=== PATIENT | male | born 1995 | race Caucasian/White ===

== ENCOUNTER 2023-03-24 12:31 | Inpatient (IN) | payer OTHER ==
[2023-03-24] MEDS ORDERED: fentaNYL 50 mcg/mL 1 mL Vial ONE (12:47)
[2023-03-24 13:08] LABS: #Basophils 0.1 thou/uL (0.0-0.2); #Monocytes 1.3 thou/uL (0.11-0.59); %Basophils 0.4 % (0.0-1.0); %Eosinophils 0.1 % (0.0-10.0); %Lymphocytes 6.4 % (21.0-51.0); %Monocytes 5.7 % (0.0-10.0); %Neutrophils 86.9 % (42.0-75.0); Hematocrit 40.7 % (42.0-52.0); Hemoglobin 14.2 g/dL (14.0-18.0); Mean Corpuscular HGB CONC 34.9 g/dL (32.0-36.0); Mean Corpuscular Hemoglobin 30.5 pg (27.0-31.0); Mean Corpuscular Volume 87.5 fl (78.0-98.0); Mean Platelet Volume 9.8 fL (7.4-10.4); Platelet Count 269 10x3/uL (130-400); RBC Distribution Width 11.9 % (11.5-14.5); Red Blood Cell (RBC) Count 4.65 mill/uL (4.70-6.10)
[2023-03-24 13:26] LABS: INR-International Normal Ratio 1.1; PTT 29.4 sec (22.9-36.1); Prothrombin Time 14.7 sec (12.0-14.7)
[2023-03-24 13:35] LABS: ALT (SGPT) 18 U/L (8-55); AST (SGOT) 23 U/L (5-34); Albumin 4.4 g/dL (3.5-5.0); Alkaline Phosphatase 52 U/L (40-110); Anion Gap 14 mmol/L (10-20); BUN (Urea Nitrogen) 12 mg/dL (8.9-20.6); Bilirubin, Total 0.9 mg/dL (0.2-1.2); Calc. Creatinine Clearance 0 mL/min (70-130); Calcium 8.5 mg/dL (7.8-10.44); Carbon Dioxide 22 mmol/L (22-29); Chloride 105 mmol/L (98-107); Estimated GFR 88; Globulin 2.3 g/dL (2.4-3.5); Glucose 94 mg/dL (70-105); Lipase 20 U/L (8-78); Potassium 3.6 mmol/L (3.5-5.1); Protein, Total 6.7 g/dL (6.0-8.3); Sodium 137 mmol/L (136-145)
[2023-03-24] MEDS ORDERED: Morphine 4 MG/ML VIAL ONE (13:53)
[2023-03-24 15:50] VITALS: BMI 22.4
[2023-03-24] MEDS ORDERED: FLU VACC QS2023-24(6MOS UP)/PF 60 MCG/0.5 ML SYRINGE IM ONE (16:00)
[2023-03-24] MEDS ORDERED: TETANUS, DIPHTHERIA TOX,ADULT (TDVAX) 0.5 ML VIAL IM ONE ×2 (16:07→16:45)
[2023-03-24] MEDS ORDERED: Ipratropium/Albuterol 3 ML NEB NEB PRN (16:07)
[2023-03-24] MEDS ORDERED: Ondansetron ODT 4 MG TAB PO PRN (16:07)
[2023-03-24] MEDS ORDERED: Acetaminophen/Codeine 30-300mg Tablet ONE (16:44)
[2023-03-24] MEDS: Sodium Chloride 0.9% 1,000 ML IV SCH (16:54)
[2023-03-24] MEDS: Acetaminophen/Codeine 30-300mg Tablet PO SCH ×2 (16:54→23:36)
[2023-03-24] MEDS ORDERED: Acetaminophen 325 MG TAB ONE (16:56)
[2023-03-24] MEDS: Acetaminophen 325 MG TAB PO SCH ×2 (16:57→23:35)
[2023-03-24] MEDS ORDERED: Morphine 2 MG/ML VIAL ONE (20:09)
[2023-03-24] MEDS ORDERED: levETIRAcetam 500 MG TAB ONE (20:09)
[2023-03-24] MEDS ORDERED: Famotidine 20 MG TAB ONE (20:09)
[2023-03-24] MEDS: levETIRAcetam 500 MG TAB PO SCH (20:15)
[2023-03-24] MEDS: Morphine 2 MG/ML VIAL SLOW IVP PRN ×2 (20:15→23:35)
[2023-03-24] MEDS: Famotidine 20 MG TAB PO SCH (20:15)
[2023-03-25] MEDS: Sodium Chloride 0.9% 1,000 ML IV SCH ×3 (00:40→16:56)
[2023-03-25] MEDS: Acetaminophen 325 MG TAB PO SCH ×5 (05:33→23:06)
[2023-03-25] MEDS: Acetaminophen/Codeine 30-300mg Tablet PO SCH ×5 (05:33→23:06)
[2023-03-25] MEDS: Morphine 2 MG/ML VIAL SLOW IVP PRN ×4 (05:33→23:07)
[2023-03-25] MEDS ORDERED: Polyethylene Glycol 3350 17 GM Packet PO PRN (06:58)
[2023-03-25] MEDS ORDERED: Senokot 8.6 MG TAB PO PRN (06:58)
[2023-03-25] MEDS: levETIRAcetam 500 MG TAB PO SCH ×2 (09:04→19:43)
[2023-03-25] MEDS: Famotidine 20 MG TAB PO SCH ×2 (09:04→19:43)
[2023-03-25] MEDS ORDERED: Bupivacaine 0.25% HCL 30 ML VIAL ONE (11:47)
[2023-03-25] MEDS ORDERED: Bupivacaine PF 0.5% 30 ML VIAL ONE (11:47)
[2023-03-25] MEDS ORDERED: CEFAZOLIN 2 GM VIAL ONE (11:56)
[2023-03-25] MEDS ORDERED: Sodium Chloride 0.9% 100 ML ONE (11:56)
[2023-03-25] MEDS ORDERED: Midazolam HCl 2 mg/2 ml Vial ONE (11:57)
[2023-03-25] MEDS ORDERED: fentaNYL PF 100 MCG/2 ML SYRINGE ONE ×4 (11:57→14:09)
[2023-03-25] MEDS ORDERED: Lidocaine 1% PF 5 ML VIAL ONE ×2 (11:57→12:08)
[2023-03-25] MEDS ORDERED: PROPOFOL 20 ML ONE (11:57)
[2023-03-25] MEDS ORDERED: Ondansetron PF 4 MG/2 ML Vial ONE (11:57)
[2023-03-25] MEDS ORDERED: PROPOFOL 200 MG/20 ML VIAL ONE (12:08)
[2023-03-25] MEDS ORDERED: Tranexamic Acid 1,000 MG/10 ML VIAL ONE (14:07)
[2023-03-25] MEDS ORDERED: Ketorolac Tromethamine 30 MG/ML VIAL ONE (14:07)
[2023-03-25] MEDS ORDERED: Promethazine HCl 25 MG/ML VIAL IM PRN (14:08)
[2023-03-25] MEDS ORDERED: Ondansetron HCl/PF 4 MG/2 ML Vial IVP PRN (14:08)
[2023-03-25] MEDS ORDERED: HYDROmorphone 2 MG/ML VIAL SLOW IVP PRN (14:08)
[2023-03-25] MEDS ORDERED: Meperidine HCl/PF 25 MG/ML VIAL SLOW IVP PRN (14:08)
[2023-03-25] MEDS ORDERED: HYDROmorphone 0.5 MG/0.5 ML SYRINGE ONE (14:37)
[2023-03-25 18:11] LABS: INR-International Normal Ratio 1.3; PTT 26.5 sec (22.9-36.1); Prothrombin Time 16.9 sec (12.0-14.7)
[2023-03-25 18:12] LABS: D-Dimer Test 2.49 *mcg/mL (0.27-0.43)
[2023-03-25 18:21] LABS: #Basophils 0.1 thou/uL (0.0-0.2); #Monocytes 1.8 thou/uL (0.11-0.59); #Neutrophils 18.7 thou/uL (1.40-6.50); %Basophils 0.3 % (0.0-1.0); %Lymphocytes 4.1 % (21.0-51.0); %Monocytes 8.3 % (0.0-10.0); %Neutrophils 86.7 % (42.0-75.0); Mean Corpuscular HGB CONC 33.3 g/dL (32.0-36.0); Mean Corpuscular Volume 93.1 fl (78.0-98.0); Mean Platelet Volume 10.9 fL (7.4-10.4); Platelet Count 196 10x3/uL (130-400); Red Blood Cell (RBC) Count 3.03 mill/uL (4.70-6.10); White Blood Cell (WBC) Count 21.6 10x3/uL (4.8-10.8)
[2023-03-25 18:23] LABS: Hematocrit 28.2 % (42.0-52.0); Hemoglobin 9.4 g/dL (14.0-18.0)
[2023-03-25 18:25] LABS: Troponin I 0.021 ng/mL (< 0.028)
[2023-03-25 18:26] LABS: ALT (SGPT) 20 U/L (8-55); AST (SGOT) 62 U/L (5-34); Albumin 3.3 g/dL (3.5-5.0); Alkaline Phosphatase 42 U/L (40-110); Anion Gap 14 mmol/L (10-20); BUN (Urea Nitrogen) 10 mg/dL (8.9-20.6); Bilirubin, Total 0.9 mg/dL (0.2-1.2); Calc. Creatinine Clearance 129 mL/min (70-130); Calcium 7.4 mg/dL (7.8-10.44); Carbon Dioxide 17 mmol/L (22-29); Chloride 109 mmol/L (98-107); Estimated GFR 115; Globulin 1.7 g/dL (2.4-3.5); Glucose 100 mg/dL (70-105); Potassium 4.4 mmol/L (3.5-5.1); Sodium 136 mmol/L (136-145)
[2023-03-25] MEDS ORDERED: Electrolyte Replacement Protocol 1 EACH FS SCH (19:00)
[2023-03-25] MEDS ORDERED: Electrolyte Replacement Protocol FS PRN (19:00)
[2023-03-26] MEDS: Sodium Chloride 0.9% 1,000 ML IV SCH ×3 (01:50→22:36)
[2023-03-26] MEDS: Morphine 2 MG/ML VIAL SLOW IVP PRN ×5 (03:59→23:13)
[2023-03-26] MEDS: Acetaminophen/Codeine 30-300mg Tablet PO SCH ×5 (05:09→23:12)
[2023-03-26 05:10] LABS: #Basophils 0.1 thou/uL (0.0-0.2); #Eosinphils 0.1 thou/uL (0.0-0.7); #Monocytes 1.8 thou/uL (0.11-0.59); #Neutrophils 5.9 thou/uL (1.40-6.50); %Basophils 0.6 % (0.0-1.0); %Eosinophils 0.9 % (0.0-10.0); %Lymphocytes 24.4 % (21.0-51.0); %Monocytes 17.5 % (0.0-10.0); %Neutrophils 56.3 % (42.0-75.0); Hematocrit 21.9 % (42.0-52.0); Hemoglobin 7.6 g/dL (14.0-18.0); Mean Corpuscular HGB CONC 34.7 g/dL (32.0-36.0); Mean Corpuscular Hemoglobin 30.3 pg (27.0-31.0); Mean Platelet Volume 9.6 fL (7.4-10.4); Platelet Count 181 10x3/uL (130-400); Red Blood Cell (RBC) Count 2.51 mill/uL (4.70-6.10)
[2023-03-26] MEDS: Acetaminophen 325 MG TAB PO SCH ×4 (05:10→23:13)
[2023-03-26 05:19] LABS: Mean Corpuscular Volume 87.3 fl (78.0-98.0); White Blood Cell (WBC) Count 10.5 10x3/uL (4.8-10.8)
[2023-03-26 06:17] LABS: ALT (SGPT) 19 U/L (8-55); AST (SGOT) 71 U/L (5-34); Albumin 2.9 g/dL (3.5-5.0); Alkaline Phosphatase 38 U/L (40-110); Anion Gap 9 mmol/L (10-20); BUN (Urea Nitrogen) 9 mg/dL (8.9-20.6); Bilirubin, Total 0.4 mg/dL (0.2-1.2); Calc. Creatinine Clearance 122 mL/min (70-130); Calcium 7.4 mg/dL (7.8-10.44); Carbon Dioxide 23 mmol/L (22-29); Chloride 106 mmol/L (98-107); Estimated GFR 108; Globulin 1.7 g/dL (2.4-3.5); Glucose 135 mg/dL (70-105); Protein, Total 4.6 g/dL (6.0-8.3); Sodium 134 mmol/L (136-145)
[2023-03-26] MEDS: levETIRAcetam 500 MG TAB PO SCH ×2 (09:16→20:00)
[2023-03-26 10:11] LABS: INR-International Normal Ratio 1.2; PTT 31.8 sec (22.9-36.1); Prothrombin Time 16.1 sec (12.0-14.7)
[2023-03-26] MEDS: Famotidine 20 MG TAB PO SCH ×2 (10:21→20:01)
[2023-03-26] MEDS: Cyclobenzaprine 10 MG TAB PO PRN ×2 (12:12→20:00)
[2023-03-26] MEDS: traMADol HCl 50 MG TAB PO PRN (18:22)
[2023-03-26] MEDS: Ferrous Sulfate 325 MG TAB PO SCH (18:23)
[2023-03-27] MEDS: Sodium Chloride 0.9% 1,000 ML IV SCH (02:01)
[2023-03-27] MEDS: Morphine 2 MG/ML VIAL SLOW IVP PRN ×3 (05:05→15:22)
[2023-03-27] MEDS: Acetaminophen 325 MG TAB PO SCH ×4 (05:06→23:12)
[2023-03-27] MEDS: Acetaminophen/Codeine 30-300mg Tablet PO SCH ×4 (05:06→23:12)
[2023-03-27] MEDS: Cyclobenzaprine 10 MG TAB PO PRN ×2 (05:09→12:44)
[2023-03-27 05:23] LABS: Hematocrit 19.9 % (42.0-52.0); Hemoglobin 6.8 g/dL (14.0-18.0); Platelet Count 151 10x3/uL (130-400)
[2023-03-27] MEDS: traMADol HCl 50 MG TAB PO PRN (05:40)
[2023-03-27] MEDS: Ferrous Sulfate 325 MG TAB PO SCH ×2 (09:03→18:01)
[2023-03-27] MEDS: Famotidine 20 MG TAB PO SCH ×2 (09:03→20:19)
[2023-03-27] MEDS: levETIRAcetam 500 MG TAB PO SCH ×2 (09:03→20:19)
[2023-03-27] MEDS: Ascorbic Acid 500 mg Chewable Tablet PO SCH (09:03)
[2023-03-27] MEDS: Gabapentin 300 MG CAP PO SCH ×2 (15:22→20:18)
[2023-03-27] MEDS ORDERED: Ketorolac Tromethamine 30 MG/ML VIAL IVP SCH (18:00)
[2023-03-27 18:22] LABS: #Eosinphils 0.1 thou/uL (0.0-0.7); #Monocytes 1.1 thou/uL (0.11-0.59); #Neutrophils 6.8 thou/uL (1.40-6.50); %Basophils 0.4 % (0.0-1.0); %Eosinophils 1.4 % (0.0-10.0); %Lymphocytes 18.3 % (21.0-51.0); %Monocytes 11.4 % (0.0-10.0); %Neutrophils 68.2 % (42.0-75.0); Hematocrit 22.1 % (42.0-52.0); Hemoglobin 7.7 g/dL (14.0-18.0); Mean Corpuscular HGB CONC 34.8 g/dL (32.0-36.0); Mean Corpuscular Hemoglobin 31.4 pg (27.0-31.0); Mean Corpuscular Volume 90.2 fl (78.0-98.0); Mean Platelet Volume 9.9 fL (7.4-10.4); Platelet Count 151 10x3/uL (130-400); RBC Distribution Width 12.7 % (11.5-14.5); Red Blood Cell (RBC) Count 2.45 mill/uL (4.70-6.10)
[2023-03-28] MEDS: Cyclobenzaprine 10 MG TAB PO PRN ×3 (04:42→23:27)
[2023-03-28 05:07] LABS: #Basophils 0.1 thou/uL (0.0-0.2); #Eosinphils 0.2 thou/uL (0.0-0.7); #Neutrophils 6.6 thou/uL (1.40-6.50); %Basophils 0.6 % (0.0-1.0); %Eosinophils 2.2 % (0.0-10.0); %Lymphocytes 16.3 % (21.0-51.0); %Monocytes 10.6 % (0.0-10.0); %Neutrophils 69.9 % (42.0-75.0); Mean Corpuscular HGB CONC 34.6 g/dL (32.0-36.0); Mean Corpuscular Hemoglobin 30.9 pg (27.0-31.0); Mean Corpuscular Volume 89.3 fl (78.0-98.0); Mean Platelet Volume 9.9 fL (7.4-10.4); Platelet Count 173 10x3/uL (130-400); RBC Distribution Width 12.8 % (11.5-14.5); Red Blood Cell (RBC) Count 2.91 mill/uL (4.70-6.10); White Blood Cell (WBC) Count 9.4 10x3/uL (4.8-10.8)
[2023-03-28] MEDS: Acetaminophen/Codeine 30-300mg Tablet PO SCH ×4 (05:13→23:27)
[2023-03-28] MEDS: Ascorbic Acid 500 mg Chewable Tablet PO SCH (05:13)
[2023-03-28] MEDS: Acetaminophen 325 MG TAB PO SCH ×2 (05:13→11:13)
[2023-03-28] MEDS: Morphine 2 MG/ML VIAL SLOW IVP PRN (06:59)
[2023-03-28] MEDS: Gabapentin 300 MG CAP PO SCH ×3 (08:13→20:54)
[2023-03-28] MEDS: levETIRAcetam 500 MG TAB PO SCH ×2 (08:13→20:54)
[2023-03-28] MEDS: Famotidine 20 MG TAB PO SCH ×2 (08:13→20:54)
[2023-03-28] MEDS: Ferrous Sulfate 325 MG TAB PO SCH ×2 (08:13→17:09)
[2023-03-28 11:54] LABS: HEX PHOS LA Tube 1 39.4 SEC; HEX PHOS LA Tube 2 33.3 SEC; Hexagonal Phospholipid Neut 6.2 SEC (0-8.0)
[2023-03-28 14:12] LABS: Cardiolipin IgG Ab 1.6 GPL-U/mL (<10 Negative); Cardiolipin IgM Ab 1.6 MPL-U/mL (<10 Negative); EliA APS New Method **** NEW METHOD ****
[2023-03-28] MEDS ORDERED: Ketorolac Tromethamine 30 MG/ML VIAL IVP SCH (16:15)
[2023-03-28] MEDS: HYDROcodone/Acetaminophen 5/325 mg Tablet PO PRN ×2 (17:09→20:54)
[2023-03-28] MEDS: Ketorolac Tromethamine 30 MG/ML VIAL IVP SCH (23:27)
[2023-03-29] MEDS: Ketorolac Tromethamine 30 MG/ML VIAL IVP SCH ×4 (05:34→23:08)
[2023-03-29] MEDS: Ascorbic Acid 500 mg Chewable Tablet PO SCH (05:34)
[2023-03-29] MEDS: HYDROcodone/Acetaminophen 5/325 mg Tablet PO PRN ×3 (05:35→23:14)
[2023-03-29] MEDS: Acetaminophen/Codeine 30-300mg Tablet PO SCH ×4 (05:35→23:08)
[2023-03-29 05:37] LABS: Hemoglobin 9.4 g/dL (14.0-18.0)
[2023-03-29] MEDS: levETIRAcetam 500 MG TAB PO SCH ×2 (10:05→19:53)
[2023-03-29] MEDS: Ferrous Sulfate 325 MG TAB PO SCH ×2 (10:05→16:12)
[2023-03-29] MEDS: Gabapentin 300 MG CAP PO SCH ×3 (10:06→19:53)
[2023-03-29] MEDS: Famotidine 20 MG TAB PO SCH ×2 (10:06→19:53)
[2023-03-29] MEDS: Cyclobenzaprine 10 MG TAB PO PRN (19:53)
[2023-03-30] MEDS: HYDROcodone/Acetaminophen 5/325 mg Tablet PO PRN ×3 (03:57→15:52)
[2023-03-30] MEDS: Ketorolac Tromethamine 30 MG/ML VIAL IVP SCH (05:35)
[2023-03-30] MEDS: Acetaminophen/Codeine 30-300mg Tablet PO SCH ×3 (05:35→17:00)
[2023-03-30] MEDS: Ascorbic Acid 500 mg Chewable Tablet PO SCH (05:36)
[2023-03-30] MEDS: Cyclobenzaprine 10 MG TAB PO PRN ×3 (05:36→22:04)
[2023-03-30] MEDS ORDERED: Ibuprofen 200 MG TAB PO PRN (06:48)
[2023-03-30] MEDS: Ferrous Sulfate 325 MG TAB PO SCH ×2 (08:18→15:54)
[2023-03-30] MEDS: levETIRAcetam 500 MG TAB PO SCH ×2 (08:18→20:41)
[2023-03-30] MEDS: Famotidine 20 MG TAB PO SCH ×2 (08:18→20:41)
[2023-03-30] MEDS: Gabapentin 300 MG CAP PO SCH ×3 (08:18→20:41)
[2023-03-30 17:13] LABS: Activated Protein C Resistance 2.5 ratio (.)
[2023-03-31] MEDS: HYDROcodone/Acetaminophen 5/325 mg Tablet PO PRN ×2 (00:18→08:07)
[2023-03-31] MEDS: Acetaminophen/Codeine 30-300mg Tablet PO SCH ×4 (00:20→17:01)
[2023-03-31] MEDS: Ascorbic Acid 500 mg Chewable Tablet PO SCH (05:36)
[2023-03-31] MEDS: Cyclobenzaprine 10 MG TAB PO PRN (05:36)
[2023-03-31] MEDS: Gabapentin 300 MG CAP PO SCH (08:06)
[2023-03-31] MEDS: Famotidine 20 MG TAB PO SCH (08:07)
[2023-03-31] MEDS: levETIRAcetam 500 MG TAB PO SCH (08:08)
[2023-03-31] MEDS: Ferrous Sulfate 325 MG TAB PO SCH ×2 (08:08→17:02)
[2023-03-31 15:38] VITALS: BP 104/61; TEMP 98.5
[2023-03-31] MEDS ORDERED: CeleCOXIB 100 MG CAP PO SCH (21:00)
[2023-03-31] MEDS ORDERED: Pregabalin 25 MG CAP PO SCH ×2 (21:00)
== END 2023-03-31 17:08 | disposition home or self-care (01) | DRG 481 ==
LOC: ERS 12:31 → ERHOLD 15:18 → SURG A 22:35
PROVIDERS: ADMIT Surgery; ATTEND Surgery
PROC: 0QS906Z Reposition Left Femoral Shaft with Intramedullary Internal Fixation Device, Open Approach (ICD-10-PCS; principal; 2023-03-25)
PROC: 30233K1 Transfusion of Nonautologous Frozen Plasma into Peripheral Vein, Percutaneous Approach (ICD-10-PCS; 2023-03-26)
PROC: 30233N1 Transfusion of Nonautologous Red Blood Cells into Peripheral Vein, Percutaneous Approach (ICD-10-PCS; 2023-03-26)
DX: S72.302A Unspecified fracture of shaft of left femur, initial encounter for closed fracture (principal); D62 Acute posthemorrhagic anemia; G40.909 Epilepsy, unspecified, not intractable, without status epilepticus; F17.210 Nicotine dependence, cigarettes, uncomplicated; R11.0 Nausea; I95.9 Hypotension, unspecified; V89.2XXA Person injured in unspecified motor-vehicle accident, traffic, initial encounter; Z88.8 Allergy status to other drugs, medicaments and biological substances; Y92.89 Other specified places as the place of occurrence of the external cause
CPT/HCPCS: 36415; 36430; 70450; 71045; 71260; 72125; 72170; 74177; 80053; 83090; 83605; 83690; 84484; 85014; 85018; 85025; 85049; 85300; 85303; 85305; 85307; 85379; 85598; 85610; 85730; 86147; 86850; 86900; 86901; 90714; 93005; 93970; 96374; 96375; C1713; G0390; J1170; J1650; J1885; J2250; J2270; J2272; J2405; J2704; J3010; J3490; J7050; P9016; P9059; Q0162; S0020